=== PATIENT | female | born 1980 | race Caucasian/White ===

== ENCOUNTER → 2018-07-29 | Day surgery (SDC) | payer OTHER ==
[2018-07-27 12:27] LABS: BASOPHILS % 0.5 % (0.0-1.0); EOSINOPHILS # (AUTO) 0.1 (0.0-0.4); HEMATOCRIT 36.1 % (34.2-44.1); HEMOGLOBIN 12.5 g/dL (12.0-16.0); LYMPHOCYTES # (AUTO) 3.1 (1.0-3.2); LYMPHOCYTES % 46.7 % (18.0-39.1); MEAN CORPUSCULAR HEMOGLOBIN 31.2 pg (28-32); MEAN CORPUSCULAR HGB CONC 34.6 g/dL (31-35); MONOCYTES # (AUTO) 0.4 (0.2-0.8); MONOCYTES % 6.1 % (4.4-11.3); NEUTROPHILS # (AUTO) 2.9 (2.1-6.9); NEUTROPHILS % 44.4 % (38.7-80.0); PLATELET COUNT 242 x10e3/uL (140-360); RED BLOOD COUNT 4.01 x10e6/uL (3.6-5.1); RED CELL DISTRIBUTION WIDTH 13.1 % (11.7-14.4)
[~2018-07-29] MED LIST: ACETAMINOPHEN 1000 MG/100 ML IV ONE; ACETIC ACID IR ONE; BENEFIBER1 EAC1 PO; CEFAZOLIN SOD 2 GM/D5W 50ML 50 ML IV ONE; DEXAMETHASONE SOD PHOS INJ 4 MG/ML VIAL ONE; FENTANYL CITRATE/PF 100MCG/2 ML INJ ONE; LIDOCAINE 1% W/EPINEPHRINE 20 ML VIAL ONE; LIDOCAINE HCL 2% LOCAL INJ 5 ML SDV VIAL INJ ONE; MIDAZOLAM HCL 2 MG/2 ML VIAL ONE; MULTI-VITAMIN1 EACH PO; ONDANSETRON HCL INJ 2MG/ML 2ML 2 MG/ML VIAL ONE; PROPOFOL IV EMULSION 10 MG/ML 20 ML VIAL ONE; SEVOFLURANE INHAL SOLN 250 ML PEN BTL ONE; [UNRECOGNIZED DRUG - OTHER] PO
[2018-07-29 16:55] VITALS: BP 120/62
--- NOTE | 2018-07-29 22:50 | Operative Report ---
DATE OF PROCEDURE: 07/29/2018 SURGEON: Marcus Gomez MD PREOPERATIVE DIAGNOSIS: Menorrhagia. POSTOPERATIVE DIAGNOSIS: Menorrhagia. PROCEDURE: 1. Hysteroscopy. 2. Endometrial ablation with hydrothermal ablation device. DOLLY OPERATOR: None. ANESTHESIA: General. ESTIMATED BLOOD LOSS: 5 mL. COMPLICATIONS: None. SPECIMENS REMOVED: Endometrial biopsy to pathology. SIGNIFICANT FINDINGS: Grossly normal endometrial anatomy noted on hysteroscopy. TECHNIQUE: The patient was taken to the operating room, where anesthesia was administered. She has been prepped and draped in usual sterile fashion. A speculum was placed into vagina and the anterior lip of the cervix was grasped with the single tooth tenaculum. The cervix was then sequentially dilated to approximately 8 mm. The hysteroscope was then inserted into the uterine cavity and a survey of the intrauterine anatomy revealed normal findings. The hysteroscope was then removed from the uterine cavity and a sharp endometrial curettage was performed to obtain endometrial curettings to be sent to pathology. Following this, the hysteroscope was again introduced into the uterine cavity. The scope was advanced into the midportion of the cavity and a tight seal was noted around the cervix to the hysteroscope sheath. Once this was done and proper placement of the hysteroscope was confirmed, the HDA device was activated and the closed circuit water flow temperature was increased to the temperature of 87 degrees celsius. At which point, a 10-minute ablation cycle was performed without difficulty. There was no fluid loss encountered during the procedure. Following completion of the 10-minute ablation cycle, the cool down cycle was performed. The hysteroscopy was performed and an adequate ablation of the entire endometrial cavity was noted. The hysteroscope was then removed from the cervix with good hemostasis noted. The tenaculum was removed from the cervix. There was some bleeding at the tenaculum puncture site, which was oversewn with a 2-0 Vicryl [id number] stitch with excellent hemostasis noted. The speculum was removed from the vagina. The patient tolerated the procedure well. All sponge, needle, and instrument counts were correct. The patient was awoken from general anesthesia and taken to recovery room in good condition. Marcus Gomez MD BT/MODL /[id number]
== END | disposition home or self-care (01) ==
LOC: OR 12:21
PROVIDERS: ATTEND Obstetrics & Gynecology
DX: N92.0 Excessive and frequent menstruation with regular cycle (principal); Z01.812 Encounter for preprocedural laboratory examination; Z82.49 Family history of ischemic heart disease and other diseases of the circulatory system; Z80.0 Family history of malignant neoplasm of digestive organs; Z80.3 Family history of malignant neoplasm of breast; Z84.89 Family history of other specified conditions; F17.210 Nicotine dependence, cigarettes, uncomplicated
CPT/HCPCS: 36415; 58563; 84702; 85025; 88305; J0131; J0690; J1100; J2001; J2250; J2405; J2704

== ENCOUNTER 2019-08-07 07:50 | Emergency (ER) | payer OTHER ==
[~2019-08-07] VITALS: Ht 162.6 cm; Wt 72.6 kg
[~2019-08-07 07:50] MED LIST changes: -ACETAMINOPHEN 1000 MG/100 ML IV ONE; -ACETIC ACID IR ONE; -CEFAZOLIN SOD 2 GM/D5W 50ML 50 ML IV ONE; -DEXAMETHASONE SOD PHOS INJ 4 MG/ML VIAL ONE; -FENTANYL CITRATE/PF 100MCG/2 ML INJ ONE; -LIDOCAINE 1% W/EPINEPHRINE 20 ML VIAL ONE; -LIDOCAINE HCL 2% LOCAL INJ 5 ML SDV VIAL INJ ONE; -MIDAZOLAM HCL 2 MG/2 ML VIAL ONE; -ONDANSETRON HCL INJ 2MG/ML 2ML 2 MG/ML VIAL ONE; -PROPOFOL IV EMULSION 10 MG/ML 20 ML VIAL ONE; -SEVOFLURANE INHAL SOLN 250 ML PEN BTL ONE
[2019-08-07] MEDS ORDERED: KETOROLAC TROMETHAMINE 60 MG/2 ML VIAL IM ONE (08:00)
--- NOTE | 2019-08-07 08:17 | Emergency Department Note ---
History of Present Illnes History of Present Illness Chief Complaint: General Medicine Complaints History of Present Illness This is a 38 year old female states that she fell 2 days ago prior with resultant left sided neck pain. Denies neuro symptoms but reports continued L paraspinal pain. 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 Any updates have been documented here. Past Medical History Recent Fever: No Clinical Suspicion of Infectio: No Past Medical History: None Social History Smoking Cessation: Never Smoker Alcohol Use: Social Any Illegal Drug Use: No Review of Systems Review of Systems Constitutional: no symptoms EENTM: other (neck pain) Cardiovascular: no symptoms Respiratory: no symptoms Gastrointestinal: no symptoms Genitourinary: no symptoms Musculoskeletal: no symptoms Neurological: headache Psychological: no symptoms Endocrine: no symptoms Hematological/Lymphatic: no symptoms Review of other systems All other systems reviewed and negative. Physical Exam Related Data Allergies: Coded Allergies: No Known Allergies (Unverified , 10/16/14) Triage Vital Signs Vital Signs Date Time Temp Pulse Resp B/P (MAP) Pulse Ox O2 Delivery O2 Flow Rate FiO2 08/07/19 07:53 99.0 108 20 139/95 100 Vital signs reviewed: Yes Physical Exam CONSTITUTIONAL Constitutional: well-developed, well-nourished HENT HENT: normocephalic, atraumatic, oropharynx clear/moist, nose normal, other (pain midline Cervical) HENT L/R: left ext ear normal, right ext ear normal EYES Eyes: PERRL, conjunctivae normal NECK Neck: ROM normal PULMONARY Pulmonary: effort normal, breath sounds normal CARDIOVASCULAR Cardiovascular: heart sounds normal, capillary refill normal, normal rate, tachycardia GASTROINTESTINAL Abdominal: soft, nontender, bowel sounds normal GENITOURINARY Genitourinary: exam deferred SKIN Skin: warm, dry MUSCULOSKELETAL Musculoskeletal: ROM normal NEUROLOGICAL Neurological: alert, oriented x 3, no gross motor or sensory deficits PSYCHOLOGICAL Psychological: mood/affect normal, judgement normal Results Laboratory Lab results reviewed: Yes Laboratory comments Laboratory Tests Test 08/07/19 10:17 White Blood Count 7.60 x10e3/uL (4.8-10.8) Red Blood Count 4.68 x10e6/uL (3.6-5.1) Hemoglobin 14.0 g/dL (12.0-16.0) Hematocrit 42.7 % (34.2-44.1) Mean Corpuscular Volume 91.2 fL (81-99) Mean Corpuscular Hemoglobin 29.9 pg (28-32) Mean Corpuscular Hemoglobin Concent 32.8 g/dL (31-35) Red Cell Distribution Width 12.9 % (11.7-14.4) Platelet Count 292 x10e3/uL (140-360) Neutrophils (%) (Auto) 61.6 % (38.7-80.0) Lymphocytes (%) (Auto) 31.4 % (18.0-39.1) Monocytes (%) (Auto) 4.7 % (4.4-11.3) Eosinophils (%) (Auto) 1.6 % (0.0-6.0) Basophils (%) (Auto) 0.4 % (0.0-1.0) Neutrophils # (Auto) 4.7 (2.1-6.9) Lymphocytes # (Auto) 2.4 (1.0-3.2) Monocytes # (Auto) 0.4 (0.2-0.8) Eosinophils # (Auto) 0.1 (0.0-0.4) Basophils # (Auto) 0.0 (0.0-0.1) Absolute Immature Granulocyte (auto 0.02 x10e3/uL (0-0.1) Activated Partial Thromboplast Time 28.4 seconds (23.8-35.5) Urine Color Yellow (YELLOW) Urine Clarity Clear (CLEAR) Urine pH 5.5 (5 - 7) Urine Specific Lena 1.020 (1.010-1.025) Urine Protein Negative (NEGATIVE) Urine Glucose (UA) Negative (NEGATIVE) Urine Ketones Negative (NEGATIVE) Urine Blood Trace (NEGATIVE) Urine Nitrite Negative (NEGATIVE) Urine Bilirubin Negative (NEGATIVE) Urine Urobilinogen 0.2 mg/dL (0.2 - 1) Urine Leukocyte Esterase Negative (NEGATIVE) Urine RBC 0-5 /HPF (0-5) Urine WBC 0-5 /HPF (0-5) Urine Epithelial Cells Moderate /LPF (NONE) Urine Bacteria Many /HPF (NONE) Urine Test Negative (NEGATIVE) Sodium Level 138 mmol/L (136-145) Potassium Level 4.1 mmol/L (3.5-5.1) Chloride Level 103 mmol/L (98-107) Carbon Dioxide Level 24 mmol/L (22-29) Anion Gap 15.1 mmol/L (8-16) Blood Urea Nitrogen 14 mg/dL (7-26) Creatinine 1.05 mg/dL (0.57-1.11) Estimat Glomerular Filtration Rate 58 ML/MIN (60-) BUN/Creatinine Ratio 13 (6-25) Glucose Level 83 mg/dL (74-118) Calcium Level 10.0 mg/dL (8.4-10.2) Total Bilirubin 0.4 mg/dL (0.2-1.2) Aspartate Amino Transf (AST/SGOT) 17 IU/L (5-34) Alanine Aminotransferase (ALT/SGPT) 13 IU/L (0-55) Alkaline Phosphatase 68 IU/L (40-150) Total Protein 8.5 g/dL (6.5-8.1) Albumin 4.7 g/dL (3.5-5.0) Globulin 3.8 g/dL (2.3-3.5) Albumin/Globulin Ratio 1.2 (0.8-2.0) Imaging Imaging results reviewed: Yes Impressions Laboratory Tests Test 08/07/19 10:17 White Blood Count 7.60 x10e3/uL (4.8-10.8) Red Blood Count 4.68 x10e6/uL (3.6-5.1) Hemoglobin 14.0 g/dL (12.0-16.0) Hematocrit 42.7 % (34.2-44.1) Mean Corpuscular Volume 91.2 fL (81-99) Mean Corpuscular Hemoglobin 29.9 pg (28-32) Mean Corpuscular Hemoglobin Concent 32.8 g/dL (31-35) Red Cell Distribution Width 12.9 % (11.7-14.4) Platelet Count 292 x10e3/uL (140-360) Neutrophils (%) (Auto) 61.6 % (38.7-80.0) Lymphocytes (%) (Auto) 31.4 % (18.0-39.1) Monocytes (%) (Auto) 4.7 % (4.4-11.3) Eosinophils (%) (Auto) 1.6 % (0.0-6.0) Basophils (%) (Auto) 0.4 % (0.0-1.0) Neutrophils # (Auto) 4.7 (2.1-6.9) Lymphocytes # (Auto) 2.4 (1.0-3.2) Monocytes # (Auto) 0.4 (0.2-0.8) Eosinophils # (Auto) 0.1 (0.0-0.4) Basophils # (Auto) 0.0 (0.0-0.1) Absolute Immature Granulocyte (auto 0.02 x10e3/uL (0-0.1) Activated Partial Thromboplast Time 28.4 seconds (23.8-35.5) Urine Color Yellow (YELLOW) Urine Clarity Clear (CLEAR) Urine pH 5.5 (5 - 7) Urine Specific Lena 1.020 (1.010-1.025) Urine Protein Negative (NEGATIVE) Urine Glucose (UA) Negative (NEGATIVE) Urine Ketones Negative (NEGATIVE) Urine Blood Trace (NEGATIVE) Urine Nitrite Negative (NEGATIVE) Urine Bilirubin Negative (NEGATIVE) Urine Urobilinogen 0.2 mg/dL (0.2 - 1) Urine Leukocyte Esterase Negative (NEGATIVE) Urine RBC 0-5 /HPF (0-5) Urine WBC 0-5 /HPF (0-5) Urine Epithelial Cells Moderate /LPF (NONE) Urine Bacteria Many /HPF (NONE) Urine Test Negative (NEGATIVE) Sodium Level 138 mmol/L (136-145) Potassium Level 4.1 mmol/L (3.5-5.1) Chloride Level 103 mmol/L (98-107) Carbon Dioxide Level 24 mmol/L (22-29) Anion Gap 15.1 mmol/L (8-16) Blood Urea Nitrogen 14 mg/dL (7-26) Creatinine 1.05 mg/dL (0.57-1.11) Estimat Glomerular Filtration Rate 58 ML/MIN (60-) BUN/Creatinine Ratio 13 (6-25) Glucose Level 83 mg/dL (74-118) Calcium Level 10.0 mg/dL (8.4-10.2) Total Bilirubin 0.4 mg/dL (0.2-1.2) Aspartate Amino Transf (AST/SGOT) 17 IU/L (5-34) Alanine Aminotransferase (ALT/SGPT) 13 IU/L (0-55) Alkaline Phosphatase 68 IU/L (40-150) Total Protein 8.5 g/dL (6.5-8.1) Albumin 4.7 g/dL (3.5-5.0) Globulin 3.8 g/dL (2.3-3.5) Albumin/Globulin Ratio 1.2 (0.8-2.0) [place] [id number] [place] [id number] Patient Name: JASON COCHRAN MR #: [id number] : 1980 Age/Sex: 38/F Req #: [id number] Adm Physician: Ordered by: YSABEL GARCÍA DO Report #: [id number] Location: ER Room/Bed: Procedure: [id number] CT/CT BRAIN WO Exam Date: 08/07/19 Exam Time: 0800 REPORT STATUS: Signed CT BRAIN WO HISTORY: Trauma, fall COMPARISON: None. TECHNIQUE: Noncontrast axial scans were obtained from skull base to the vertex. Coronal and sagittal reconstructions obtained from the axial data. One or more of the following dose reduction techniques were used: Automated exposure control, adjustment of the mA and/or kV according to patient size, and/or utilization of iterative reconstruction technique. Beam hardening artifacts along the skull base obscure some details. DISCUSSION: Scalp/Skull: Small left parieto-occipital scalp hematoma. No calvarial fracture. Brain sulci: Appropriate for patient's age. Ventricles: Normal in size and configuration. No hydrocephalus. Extra-axial spaces: No masses or fluid collections. Parenchyma: Focal contusion in the medial right orbitofrontal region is associated with local edema and subcentimeter juxtacortical hematoma. Mass effect is local without significant brain herniation. Subtle globi pallidi hyperdensity may be due to physiologic calcification. Otherwise, no mass, or large vascular territory acute infarct. Dural sinuses: No abnormal densities. Sellar/Suprasellar region: Intact. Skull base: Intact. Incidental findings: None. IMPRESSION: 1. Focal medial right orbitofrontal hemorrhagic contusion. Mass effect is local without significant brain herniation. 2. No other intracranial abnormalities. Findings discussed with Dr. García at 9:13 AM on 08/07/2019 (by Dr. Richards). Signed by: Dr. Mark Richards M.D. on 08/07/2019 9:14 AM Dictated By: MARK RICHARDS MD 3 Transcribed By: DINESH on 08/07/19913 COPY TO: YSABEL GARCÍA DO~ [place] [id number] Patient Name: JASON COCHRAN MR #: [id number] : 1980 Age/Sex: 38/F Req #: [id number] Adm Physician: Ordered by: YSABEL GARCÍA DO Report #: [id number] Location: ER Room/Bed: Procedure: [id number] CT/CT CERVICAL SPINE WO Exam Date: 08/07/19 Exam Time: 0800 REPORT STATUS: Signed CT CERVICAL SPINE WO HISTORY: Trauma, fall COMPARISON: None. TECHNIQUE: CT of the cervical spine without contrast. Sagittal and coronal reformations were created. One or more of the following dose reduction techniques were used: Automated exposure control, adjustment of the mA and/or kV according to patient size, and/or utilization of iterative reconstruction technique. FINDINGS: Cervical lordosis is slightly reversed. There is no significant scoliosis. No fractures, compression deformity, or destructive osseous lesions are seen. The craniocervical junction is intact. No gross spinal canal masses are seen. The paravertebral and paraspinal soft tissues are unremarkable. Multilevel spondylosis is moderate at C6-C7. There is prominent facet arthrosis on the left at C3-C4. Minimal grade 1 anterolisthesis of C3 on C4 and C4 on C5 are due to facet arthrosis. There is at least mild canal stenosis at C6-C7 due to posterior disc osteophyte complex. Multilevel foraminal stenoses due to uncovertebral and facet arthrosis are also present - moderate right and moderate to severe left at C3-C4; moderate to severe on the right at C5-C6; moderate to severe on the left at C6-C7. IMPRESSION: 1. No acute osseous abnormalities. 2. Multilevel spondylosis, moderate at C6-C7. Prominent left C3-C4 facet arthrosis. Signed by: Dr. Mark Richards M.D. 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 Assessment & Plan Assessment & Plan Problems: (1) Focal hemorrhagic contusion of cerebrum (2) Neck pain Reassessment Reassessment time: 09:41 Reassessment Radiology called to discuss findings. Transfer initiated. Depart Disposition: TRANS TO OTHER [facility] Home Meds Reported Medications Multivitamin (MULTI-VITAMIN DAILY) 1 Each Tablet, 1 TAB PO DAILY 07/27/18 YSABEL GARCÍA DO August 07, 2019 07:54
--- NOTE | 2019-08-07 09:17 | Diagnostic Imaging Report ---
CT BRAIN WO HISTORY: Trauma, fall COMPARISON: None. TECHNIQUE: Noncontrast axial scans were obtained from skull base to the vertex. Coronal and sagittal reconstructions obtained from the axial data. One or more of the following dose reduction techniques were used: Automated exposure control, adjustment of the mA and/or kV according to patient size, and/or utilization of iterative reconstruction technique. Beam hardening artifacts along the skull base obscure some details. DISCUSSION: Scalp/Skull: Small left parieto-occipital scalp hematoma. No calvarial fracture. Brain sulci: Appropriate for patient's age. Ventricles: Normal in size and configuration. No hydrocephalus. Extra-axial spaces: No masses or fluid collections. Parenchyma: Focal contusion in the medial right orbitofrontal region is associated with local edema and subcentimeter juxtacortical hematoma. Mass effect is local without significant brain herniation. Subtle globi pallidi hyperdensity may be due to physiologic calcification. Otherwise, no mass, or large vascular territory acute infarct. Dural sinuses: No abnormal densities. Sellar/Suprasellar region: Intact. Skull base: Intact. Incidental findings: None. IMPRESSION: 1. Focal medial right orbitofrontal hemorrhagic contusion. Mass effect is local without significant brain herniation. 2. No other intracranial abnormalities. Findings discussed with Dr. García at 9:13 AM on 08/07/2019 (by Dr. Richards). Signed by: Dr. Mark Richards M.D. on 08/07/2019 9:14 AM
--- NOTE | 2019-08-07 09:25 | Diagnostic Imaging Report ---
CT CERVICAL SPINE WO HISTORY: Trauma, fall COMPARISON: None. TECHNIQUE: CT of the cervical spine without contrast. Sagittal and coronal reformations were created. One or more of the following dose reduction techniques were used: Automated exposure control, adjustment of the mA and/or kV according to patient size, and/or utilization of iterative reconstruction technique. FINDINGS: Cervical lordosis is slightly reversed. There is no significant scoliosis. No fractures, compression deformity, or destructive osseous lesions are seen. The craniocervical junction is intact. No gross spinal canal masses are seen. The paravertebral and paraspinal soft tissues are unremarkable. Multilevel spondylosis is moderate at C6-C7. There is prominent facet arthrosis on the left at C3-C4. Minimal grade 1 anterolisthesis of C3 on C4 and C4 on C5 are due to facet arthrosis. There is at least mild canal stenosis at C6-C7 due to posterior disc osteophyte complex. Multilevel foraminal stenoses due to uncovertebral and facet arthrosis are also present - moderate right and moderate to severe left at C3-C4; moderate to severe on the right at C5-C6; moderate to severe on the left at C6-C7. IMPRESSION: 1. No acute osseous abnormalities. 2. Multilevel spondylosis, moderate at C6-C7. Prominent left C3-C4 facet arthrosis. Signed by: Dr. Mark Richards M.D. on 08/07/2019 9:21 AM
[2019-08-07 10:26] LABS: BASOPHILS % 0.4 % (0.0-1.0); EOSINOPHILS # (AUTO) 0.1 (0.0-0.4); EOSINOPHILS % 1.6 % (0.0-6.0); HEMATOCRIT 42.7 % (34.2-44.1); LYMPHOCYTES # (AUTO) 2.4 (1.0-3.2); LYMPHOCYTES % 31.4 % (18.0-39.1); MEAN CORPUSCULAR HEMOGLOBIN 29.9 pg (28-32); MEAN CORPUSCULAR HGB CONC 32.8 g/dL (31-35); MEAN CORPUSCULAR VOLUME 91.2 fL (81-99); MONOCYTES # (AUTO) 0.4 (0.2-0.8); MONOCYTES % 4.7 % (4.4-11.3); NEUTROPHILS # (AUTO) 4.7 (2.1-6.9); NEUTROPHILS % 61.6 % (38.7-80.0); PLATELET COUNT 292 x10e3/uL (140-360); RED BLOOD COUNT 4.68 x10e6/uL (3.6-5.1); RED CELL DISTRIBUTION WIDTH 12.9 % (11.7-14.4)
[2019-08-07 10:35] LABS: COLOR,URINE YELLOW (YELLOW)
[2019-08-07 10:36] LABS: BILIRUBIN,URINE NEGATIVE (NEGATIVE); CLARITY,URINE CLEAR (CLEAR); KETONES,URINE NEGATIVE (NEGATIVE); LEUKOCYTE ESTERASE ,URINE NEGATIVE (NEGATIVE); NITRITE,URINE NEGATIVE (NEGATIVE); PREGNANCY TEST, URINE NEGATIVE (NEGATIVE); PROTEIN,URINE DIPSTICK NEGATIVE (NEGATIVE); URINE UROBILINOGEN 0.2 mg/dL (0.2 - 1)
[2019-08-07] MEDS ORDERED: MORPHINE SULFATE INJ 4 MG/ML INJ 1ML IV STA (10:39)
[2019-08-07] MEDS ORDERED: ONDANSETRON HCL INJ 2MG/ML 2ML 2 MG/ML VIAL IV STA (10:39)
[2019-08-07 10:48] LABS: BACTERIA,URINE MANY /HPF; EPITHELIAL CELLS,URINE MODERATE /LPF; RBC,URINE 0-5 /HPF (0-5); WBC,URINE (MAN) 0-5 /HPF (0-5)
[2019-08-07 10:55] LABS: ALBUMIN 4.7 g/dL (3.5-5.0); ALBUMIN/GLOBULIN RATIO 1.2 (0.8-2.0); ANION GAP 15.1 mmol/L (8-16); CREATININE, SERUM 1.05 mg/dL (0.57-1.11); POTASSIUM 4.1 mmol/L (3.5-5.1)
== END 2019-08-07 12:30 | disposition other institution (70) ==
LOC: ER 07:50
DX: S00.83XA Contusion of other part of head, initial encounter (principal); M54.2 Cervicalgia; M47.812 Spondylosis without myelopathy or radiculopathy, cervical region; W18.30XA Fall on same level, unspecified, initial encounter; Y92.511 Restaurant or cafe as the place of occurrence of the external cause
CPT/HCPCS: 36415; 70450; 72125; 80053; 81001; 81025; 85025; 85730; 99284; J1885; J2270; J2405

== ENCOUNTER → 2020-03-28 | Outpatient (CLI) | payer OTHER ==
[~2020-03-28] MED LIST changes: +COVID-19 VACC, MRNA(MODERNA)/PF 100 MCG/0.5 ML VIAL IM ONE
== END ==
LOC: VACCPMC 09:30
DX: Z23 Encounter for immunization (principal); Z20.822 Contact with and (suspected) exposure to COVID-19

== ENCOUNTER → 2020-04-25 | Outpatient (CLI) | payer OTHER | END | DRG 951 | LOC: VACCPMC 07:04 | DX: Z23 Encounter for immunization (principal); Z20.822 Contact with and (suspected) exposure to COVID-19 | CPT/HCPCS: 0012A; 91301 ==

== ENCOUNTER 2020-11-12 08:01 | Emergency (ER) | payer OTHER ==
[~2020-11-12] VITALS: Ht 162.6 cm; Wt 68.0 kg
[~2020-11-12 08:01] MED LIST changes: -COVID-19 VACC, MRNA(MODERNA)/PF 100 MCG/0.5 ML VIAL IM ONE
[2020-11-12] MEDS ORDERED: SODIUM CHLORIDE 0.9% 1000ML 1,000 ML ONE (08:28)
[2020-11-12] MEDS ORDERED: KETOROLAC TROMETHAMINE 30 MG/ML VIAL ONE (08:28)
[2020-11-12] MEDS ORDERED: KETOROLAC TROMETHAMINE 30 MG/ML VIAL IV ONE (08:30)
[2020-11-12] MEDS ORDERED: ULTRAM 50MG50 MG PO (09:44)
[2020-11-12] MEDS ORDERED: CIPRO500 MG PO (09:44)
[2020-11-12] MEDS ORDERED: SODIUM CHLORIDE 0.9% 50ML 50 ML ONE (10:06)
[2020-11-12] MEDS ORDERED: CEFTRIAXONE 1 GM VIAL ONE (10:06)
[2020-11-13] MEDS ORDERED: CEFTRIAXONE 1 GM in SODIUM CHLORIDE 0.9% 50ML 50 ML IV SCH (09:00)
== END 2020-11-12 10:09 | disposition home or self-care (01) ==
LOC: FSED 08:14
DX: M54.5 Low back pain (principal); R30.0 Dysuria; N39.0 Urinary tract infection, site not specified; F17.210 Nicotine dependence, cigarettes, uncomplicated
CPT/HCPCS: 74176; 80053; 80076; 81003; 81025; 85025; 87086; 96374; 99284; J0696; J1885; J7030

== ENCOUNTER → 2021-04-07 | Outpatient (CLI) | payer OTHER ==
[~2021-04-07] MED LIST changes: +CIPRO500 MG PO; +ULTRAM 50MG50 MG PO
== END ==
LOC: MAMMO 10:49
PROVIDERS: ATTEND Nurse Practitioner Women's Health
DX: Z12.31 Encounter for screening mammogram for malignant neoplasm of breast (principal)
CPT/HCPCS: 77067

== ENCOUNTER → 2022-05-25 | Outpatient (CLI) | payer OTHER | LOC: MAMMO 14:17 | PROVIDERS: ATTEND Nurse Practitioner Women's Health | DX: Z12.31 Encounter for screening mammogram for malignant neoplasm of breast (principal) | CPT/HCPCS: 77067 ==

== ENCOUNTER → 2024-05-11 | Outpatient (REF) | payer OTHER | LOC: MAMMO 13:37 | PROVIDERS: ATTEND Obstetrics & Gynecology | DX: Z12.31 Encounter for screening mammogram for malignant neoplasm of breast (principal) | CPT/HCPCS: 77067 ==